=== PATIENT | male | born 1945 | race Caucasian/White ===

== ENCOUNTER 2022-02-11 11:52 | Outpatient (CLI) | payer MEDICARE, SELFPAY ==
--- NOTE | 2022-02-11 12:13 | CT_ITS ---
WS: [id number] EXAMINATION: CT chest w con* [id number] REASON FOR EXAM: ABNORMAL CXR COMPARISON: None available. ORDER DATE: 02/11/2022 12:43 PM TOTAL EXAM DLP: 724.[address] scans at [facility] use at least one of these dose optimization techniques: automated ex posure control; mA and/or kV adjustment per patient size (includes targeted exams where dose is match ed to clinical indication); or iterative reconstruction. TECHNIQUE: Multiple axial images of the chest were obtained with 2-D imaging without the administration of contr ast. Evaluation of the mediastinum and amie for adenopathy and other pathology is significantly limited by the lack of intravascular contrast. FINDINGS: Lungs and Central Bronchi: Diffuse centrilobular emphysema with changes of early interstitial lung di sease. There is a 2 mm subpleural nodule in each upper lobe on axial image 25 and another in the righ t upper lobe on image 26, 4 mm subpleural nodule right middle lobe and 6 mm nodule lingula and anothe r 3 mm subpleural nodule left lower lobe on axial image 41, 4 mm noncalcified subpleural nodule in th e left lower lobe on axial image 46, subpleural nodule left lower lobe axial image 43, 4 mm nodule le ft lower lobe axial image 46 Pleura: within normal limits. Vessels: Atherosclerotic changes in the thoracic aorta with ectasia measuring 45.7 mm in diameter an d extensive left coronary artery calcification. Heart: Cardiomegaly No pericardial effusion. Mediastinum and Maie: within normal limits. Chest Wall and Lower Neck: within normal limits. 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 CT/CT chest w con* [id number] IMPRESSION: CENTRILOBULAR EMPHYSEMA WITH INTERSTITIAL FIBROSIS NUMEROUS PULMONARY NODULES RECOMMENDED FLEISCHNER CRITERIA FOLLOW-UP SEVERE CORONARY ARTERY DISEASE
[2022-02-11] MEDS: iohexol 350 mg/mL 500 mL Btl (per mL) IV (12:42)
== END 2022-02-11 11:53 | disposition home or self-care (01) ==
PROVIDERS: PCP Family Medicine; Visit Provider Family Medicine
DX: R93.89 Abnormal findings on diagnostic imaging of other specified body structures (principal); J43.2 Centrilobular emphysema; R91.8 Other nonspecific abnormal finding of lung field
CPT/HCPCS: 71260; Q9967

== ENCOUNTER 2022-04-20 10:58 | Outpatient (CLI) | payer OTHER, SELFPAY ==
--- NOTE | 2022-04-20 11:19 | CT_ITS ---
WS: [id number] CT CHEST WITH INTRAVENOUS CONTRAST HISTORY: FOLLOW UP STUDY/02/11/22 MULTIPLE LUNG NODULES SEVERE CAD TECHNIQUE: Contiguous 5 mm axial imaging performed on the thorax. Coronal and sagittal reformats are submitted. All CT scans at [facility] use at least one of these dose optimization techniques: automated exposure control; mA and/or kV adjustment per patient size (includes targeted exams where dose is matched to clinical indication); or iterative reconstruction. CONTRAST: Omnipaque 350; 100 mL IV. DLP: 387.34 mGy.cm COMPARISON: 02/11/2022 Lungs and central airway: Mild pulmonary hyperexpansion. Advanced paraseptal and centrilobular emphys emelia. Progression of peripheral interstitial and reticular thickening in the upper and lower lung fiel ds. No bronchiectasis or honeycombing. The largest nodule measures 6 mm in the lingula. 5 mm nodule i n the RIGHT middle lobe. No increase in size. Additional tiny micronodules have not increased. Pleura: Normal. No pleural effusion. Heart and pericardium: Mild cardiomegaly. No pericardial effusion. Mediastinum and elena: Small to moderate mediastinal and hilar lymph nodes. The largest lymph node is 14 mm at the RIGHT hilum which may be reactive. Similar to the prior study. Vessels: Normal size pulmonary artery. Moderate atherosclerotic plaque within the thoracic aorta. Mil d ectasia. Additional areas of subtle aortic plaque near the diaphragmatic hiatus. There is heavy reinaldo cification throughout the coronary arteries. Chest wall and lower neck: 7 mm exophytic soft tissue nodule in the LEFT chest wall. Probably a small skin tag. Upper abdomen: No acute abnormality. Osseous structures: Mild curvature thoracic spine. No destructive bone lesions. CT/CT chest w con* [id number] IMPRESSION: 1. 6 mm lingula and 5 mm RIGHT middle lobe pulmonary nodules are unchanged sin ce 02/11/2022. 2. Additional micronodules previously described are difficult to visualize due to very small size and volume averaging. 3. Advanced emphysema with interstitial pulmonary fibrosis. 4. Severe coronary artery atherosclerosis.
[2022-04-20] MEDS: iohexol 350 mg/mL 500 mL Btl (per mL) IV (11:46)
[2022-04-20 11:48] LABS: Blood Urea Nitrogen 19 mg/dL (8-23)
== END 2022-04-20 10:59 | disposition home or self-care (01) ==
PROVIDERS: PCP Family Medicine; Visit Provider Family Medicine
DX: R91.8 Other nonspecific abnormal finding of lung field (principal); I25.10 Atherosclerotic heart disease of native coronary artery without angina pectoris; J43.9 Emphysema, unspecified; J84.10 Pulmonary fibrosis, unspecified
CPT/HCPCS: 71260; 82565; 84520; Q9967